=== PATIENT | female | born 1990 | race Native Hawaiian/Other Pacific Islander ===

== ENCOUNTER 2021-05-24 13:27 | Outpatient (CLI) | payer OTHER | END 2021-05-24 19:43 | disposition home or self-care (01) | LOC: RAD 13:27 | PROVIDERS: ATTEND Orthopaedic Surgery | DX: M25.552 Pain in left hip (principal) ==

== ENCOUNTER 2021-06-03 08:24 | Outpatient (CLI) | payer OTHER | END 2021-06-03 18:56 | disposition home or self-care (01) | LOC: CT 08:24 | PROVIDERS: ATTEND Physician Assistant | DX: M24.152 Other articular cartilage disorders, left hip (principal) ==

== ENCOUNTER 2022-11-29 12:19 | Outpatient (CLI) | payer OTHER | END 2022-11-29 21:58 | LOC: RAD 12:19 | PROVIDERS: ATTEND Orthopaedic Surgery | DX: M25.551 Pain in right hip (principal) ==

== ENCOUNTER 2022-12-14 12:41 | Outpatient (CLI) | payer OTHER | END 2022-12-14 22:13 | disposition home or self-care (01) | LOC: MRI 12:41 | PROVIDERS: ATTEND Orthopaedic Surgery | DX: Q65.89 Other specified congenital deformities of hip (principal) ==